=== PATIENT | male | born 1965 | race Caucasian/White ===

== ENCOUNTER 2018-12-16 15:08 | Day surgery (SDC) | payer OTHER ==
[2018-12-16] VITALS (8 sets, daily range): BP systolic 120–135; BP diastolic 70–84; PULSE 71–93; TEMP 97.8–98.2
[~2018-12-16] VITALS: Ht 172.7 cm; Wt 99.1 kg
[~2018-12-16 15:08] MED LIST: ALBUTEROL0.09 MG/A1 IH; COREG 6.256.25 MG/TA PO; GUAIFENESIN PO; LISINOPRIL10 MG PO; VENTOLIN0.09 MG IH; [UNRECOGNIZED DRUG - OTHER] IH
[2018-12-16] MEDS ORDERED: RT ADVAIR 228 DISKUS IH (16:09)
[2018-12-16] MEDS ORDERED: ZYRTEC 10MG10 MG PO (16:10)
[2018-12-16] MEDS ORDERED: SYNTHROID0.1 MG/TAB PO (16:10)
--- NOTE | 2018-12-16 16:35 | NUR ---
Patient up from admissions. IV initiated to left forarm. Initial and 5 page complete. Patient down to OR.
--- NOTE | 2018-12-16 18:39 | NUR ---
Patient up from OR. Alert and oriented x 3. Post op VSS. Patient up to restroom, voiding clear pink urine, without difficulty. Steady gait. Spouse at bedside. Tolerating water, patient ordering supper. Denies further needs at this time. Will report off to assistant shift supervisor.
--- NOTE | 2018-12-16 20:00 | NUR ---
Pt. sitting up in bed at this time. Pt. has tolerated po, urinated, and ambulated. Will process discharge paper work. Pt. is A&OX3, assessment complete. INT to rt. forearm patent. Pt. denies pain or other needs.
--- NOTE | 2018-12-16 21:00 | NUR ---
Pt. given discharge instructions, reviewed education, scripts, follow-up appointment info, and health summary with pt. Pt. voices understanding. INT to rt. forearm discontinued. Pt. escorted out with and [employer].
== END 2018-12-16 21:00 | disposition home or self-care (01) ==
LOC: SDCO 15:08 → SURG 15:08 → SDCO 17:00
DX: N20.1 Calculus of ureter (principal); J45.909 Unspecified asthma, uncomplicated; G47.33 Obstructive sleep apnea (adult) (pediatric); M19.90 Unspecified osteoarthritis, unspecified site; E03.9 Hypothyroidism, unspecified
CPT/HCPCS: OP; C1769; J0690; J1100; J1885; J2405; J2704; J3010; J7030; Q9967